=== PATIENT | female | born 1985 | race Caucasian/White ===

== ENCOUNTER → 2016-04-28 | Outpatient (CLI) | payer BC ==
[~2016-04-28] MED LIST: FERR325T; PRENTAB69 PO
[2016-04-28 11:54] LABS: URINE APPEARANCE CLEAR (CLEAR); URINE BILIRUBIN NEG (NEG); URINE COLOR YELLOW; URINE EPITHELIAL CELL AUTO 20-30 /lpf (0-5); URINE NITRITE NEG (NEG); URINE PH >= 9.0 (4.5-7.5); URINE SPECIFIC GRAVITY 1.014 (1.000-1.030); UROBILINOGEN NEG (NEG)
[2016-04-28 12:03] LABS: MANUAL MICROSCOPIC REQUIRED? NO; REVIEW REQ? NO
[2016-04-28 12:19] LABS: HEMATOCRIT 33.2 % (37-47)
[2016-04-28 12:46] LABS: GTGD 50 Grams
== END | disposition home or self-care (01) ==
LOC: C.LAB1850 10:28
PROVIDERS: ATTEND Obstetrics & Gynecology
DX: Z34.83 Encounter for supervision of other normal pregnancy, third trimester (principal)

== ENCOUNTER → 2016-06-30 | Outpatient (CLI) | payer BC | END | disposition home or self-care (01) | LOC: C.LABSPEC 16:25 | PROVIDERS: ATTEND Obstetrics & Gynecology | DX: Z34.83 Encounter for supervision of other normal pregnancy, third trimester (principal) ==

== ENCOUNTER 2016-07-05 11:06 | Inpatient (IN) | payer BC ==
[~2016-07-05] VITALS: Ht 149.9 cm; Wt 63.0 kg
[2016-07-05] MEDS ORDERED: LANOLIN OINT EXT PRN ×2 (11:30)
[2016-07-05] MEDS ORDERED: ACETAMINOPHEN 325 MG TAB PO PRN (11:30)
[2016-07-05] MEDS ORDERED: HYDROCORTISONE ACETATE 25 MG SUPP PR PRN (11:30)
[2016-07-05] MEDS ORDERED: OXYTOCIN INJ 10 UNITS/ML VIAL IM ONE (11:30)
[2016-07-05] MEDS ORDERED: DIPHTHERIA/TETANUS/PERTUSSIS 0.5 ML SYR/VIAL IM. ONE (11:30)
[2016-07-05] MEDS ORDERED: OXYCODONE/ACETAMINOPHEN 5-325 TAB PO PRN (11:30)
[2016-07-05] MEDS ORDERED: BENZOCAINE 20% AER SPR 82.5 GM CAN EXT PRN (11:30)
[2016-07-05] MEDS ORDERED: ACETAMINOPHEN/CODEINE 300/30MG TAB PO PRN ×2 (11:30)
[2016-07-05] MEDS ORDERED: SUPERCREAM 0.870 % 15GM JAR EXT PRN (11:30)
[2016-07-05 11:58] VITALS: BMI 28.1
--- NOTE | 2016-07-05 12:31 | DELIVERY SUMMARY ---
DATE OF OPERATION: 07/05/2016 PREOPERATIVE DIAGNOSIS: 1. Intrauterine at 37+ weeks. 2. Precipitous labor. POSTOPERATIVE DIAGNOSIS: Same. PROCEDURES: 1. Normal spontaneous vaginal delivery. 2. Second degree perineal laceration with repair. SURGEON: Dr. Montoya. ANESTHESIA: Local infiltration of lidocaine to the perineum. ESTIMATED BLOOD LOSS: 300 mL. PROCEDURE: The patient called noting that she had had a precipitous labor with her second baby laboring for 1.5 hours and she was katelyn and felt feeling pressure to push just like that. She was invited to come in. When she arrived she was uncomfortable nothing that she needed to push. She was evaluated and found to be complete complete and +2 station. She was pushing uncontrollably. She was coached in pushing and with the first push a bulging bag was noted at the introitus which was ruptured for clear fluid. Then she pushed to deliver a viable male in ROSA presentation. There was a double nuchal cord and the patient was unable to stop pushing so the baby was thankfully able to be delivered with that double nuchal cord. Once the baby was delivered the double nuchal cord was unwrapped. The baby did make an immediate cry. The nose and mouth were bulb suctioned. The cord was clamped and cut and the infant was placed on the maternal abdomen for drying and attention. Cord blood and segment were obtained. The placenta was delivered spontaneous and intact with 3-vessel cord. Hemostasis obtained with dilute Pitocin and IM pit. A small second degree perineal laceration was repaired under local infiltration of lidocaine to the perineum with 3-0 Vicryl in a normal standard fashion. Apgars were 8 and 10. Mother and baby doing well at the end of the delivery. I attest to the content of the Intraoperative Record and any orders documented therein. Any exceptio ns are noted below.
[2016-07-05] MEDS: IBUPROFEN 600 MG TAB PO PRN ×2 (13:51→19:58)
[2016-07-05 14:25] VITALS: Ht 149.9 cm; Wt 63.0 kg
[2016-07-05 15:30] VITALS: BP 127/81; PULSE 59; TEMP 36.8
[2016-07-05 19:45] VITALS: BP 131/77; PULSE 73; TEMP 36.9
[2016-07-05] MEDS: DOCUSATE SODIUM 100 MG CAP PO SCH (19:58)
[2016-07-06 00:25] VITALS: BP 118/67; PULSE 59; TEMP 36.9
[2016-07-06 04:40] VITALS: BP 118/74; PULSE 55; TEMP 36.8
[2016-07-06] MEDS: IBUPROFEN 600 MG TAB PO PRN ×2 (04:54→15:23)
--- NOTE | 2016-07-06 07:09 | Progress Note ---
Subjective Jul 06, 2016. Subjective conversation w/ patient, physical exam Ambulation: ambulating normally Passing Gas: Yes Diet Tolerance: Regular Diet Lochia: Small Feeding Type: Breast Feeding Review of Systems Constitutional: No chills, No fever, No sweats Respiratory: No cough, No shortness of breath Cardiac: No chest pain, No claudication Objective Vital Signs Date Time Temp Pulse Resp B/P Pulse Ox O2 Delivery O2 Flow Rate FiO2 07/06/16 04:40 36.8 55 18 118/74 Room Air 07/06/16 00:25 36.9 59 20 118/67 Room Air 07/06/16 00:25 Room Air 07/05/16 19:45 36.9 73 20 131/77 Room Air 07/05/16 15:30 36.8 59 16 127/81 Room Air 07/05/16 15:30 Room Air Physical Exam General Appearance: WELL-APPEARING, NO APPARENT DISTRESS Respiratory/Chest: lungs clear, no accessory muscle use Cardiovascular: regular rate, rhythm, no murmur Fundus: Firm, Non-Tender, Relation to Umbilicus (2 cm below) Extremities: non-tender, no calf tenderness Laboratory Results Last 24 Hours Test 07/06/16 04:44 Assessment and Plan Problem List Medical Problems: (1) uterine contractions, antepartum Status: Acute Post- Day#: 1 Continue Routine Care: s/p Day 1 - vitals reviewed and wnl - Hgb pending this morning - blood: A+, Rubella immune, GBS negative - encourage ambulation, encourage , monitor lochia - patient doing well clinically - CONTINUE ROUTINE POST CARE Resident Physician Supervision Note: I interviewed and examined the patient. Discussed with Dr. Gage and agree with findings and plan as documented in the note. Any exceptions or clarifications are listed here: Doing well. Routine care. Documented By: Ashley Montoya
[2016-07-06 07:38] LABS: HEMATOCRIT 32.9 % (37-47)
[2016-07-06] MEDS: PRENATAL VITAMIN TAB PO SCH (08:44)
[2016-07-06] MEDS: DOCUSATE SODIUM 100 MG CAP PO SCH ×2 (08:44→20:43)
[2016-07-06 08:45] VITALS: BP 119/75; PULSE 74; TEMP 36.5; O2SAT 97
[2016-07-06 15:15] VITALS: BP 130/76; PULSE 67; TEMP 36.7; O2SAT 98
[2016-07-07 00:35] VITALS: BP 117/71; PULSE 61; TEMP 36.6; O2SAT 98
[2016-07-07] MEDS: IBUPROFEN 600 MG TAB PO PRN (00:35)
--- NOTE | 2016-07-07 06:57 | Progress Note ---
Subjective Jul 07, 2016. Subjective conversation w/ patient, physical exam Ambulation: ambulating normally Voiding: no voiding problems Passing Gas: Yes Diet Tolerance: Regular Diet Lochia: Small Feeding Type: Breast Feeding Review of Systems Constitutional: No chills, No fever Respiratory: No cough, No shortness of breath Cardiac: No chest pain, No claudication Objective Vital Signs Date Time Temp Pulse Resp B/P Pulse Ox O2 Delivery O2 Flow Rate FiO2 07/07/16 00:35 36.6 61 16 117/71 98 Room Air 07/07/16 00:35 98 Room Air 07/06/16 15:15 36.7 67 16 130/76 98 Room Air 07/06/16 15:15 98 Room Air 07/06/16 08:45 97 Room Air 07/06/16 08:45 36.5 74 16 119/75 97 Room Air Physical Exam General Appearance: WELL-APPEARING, NO APPARENT DISTRESS Respiratory/Chest: lungs clear, no accessory muscle use Cardiovascular: regular rate, rhythm, no murmur Fundus: Firm, Non-Tender, Relation to Umbilicus (2 cm below) Extremities: non-tender, no calf tenderness Laboratory Results Last 24 Hours Test 07/06/16 07:24 Hemoglobin 11.2 g/dL Hematocrit 32.9 % Assessment and Plan Problem List Medical Problems: (1) uterine contractions, antepartum Status: Acute Post- Day#: 2 Continue Routine Care: Resident Physician Supervision Note: I interviewed and examined the patient. Discussed with Dr. Gage and agree with findings and plan as documented in the note. Any exceptions or clarifications are listed here: [None] Documented By: Beverly Collado s/p Day 2 - vitals reviewed and wnl - Hgb 11.2 yesterday - blood: A+, Rubella immune, GBS negative - encourage ambulation, encourage , monitor lochia - patient doing well clinically - patient counselled on discharge instructions - PATIENT TO BE DISCHARGED TODAY
--- NOTE | 2016-07-07 07:21 | Discharge Instructions ---
Discharge Instructions Date of Service Jul 07, 2016. Admission Reason for Admission: Check Labor Discharge Discharge Diagnosis / Problem: Spontaneous Vaginal Delivery Discharge Goals Goal(s): Routine recovery after delivery Medications Continue Dispensed Medications: supercream, dermaplast, tucks, lansinoh Activity Recommendations Activity Limitations: per Instructions/Follow-up section . Instructions / Follow-Up Instructions / Follow-Up ACTIVITY RECOMMENDATIONS: * Gradual return to full activity over the next 2-3 weeks. * No lifting - nothing heavier than baby over the next 2-3 weeks. * Do not engage in vigorous exercise, sexual activity or sports until cleared by your physician. * Do not drive or operate any motorized equipment until cleared by your physician. * You may shower/bathe daily. MEDICATIONS: For discomfort or pain, you may use Acetaminophen (Tylenol), Ibuprofen (Advil), or Naproxen (Aleve) following the package directions. For constipation you may use Colace following the package directions. BREAST CARE: If you are not breast feeding: * Wear a supportive bra 24 hours a day for one to two weeks. * Avoid stimulating your breasts and nipples as much as possible during the first few weeks after delivery. * When taking a shower, have the warm water hit your back, not breasts. * When your breasts feel full, apply ice packs. Usually three to four times a day helps ease the discomfort. * Take a mild pain medication (Tylenol / Motrin) when you are uncomfortable. If breast feeding: * Use breast milk to lubricate nipples. Lansinoh cream may be used for sore nipples. You do not need to remove cream prior to breast feeding. If using a different brand of cream, check the label for directions regarding removal of cream prior to nursing. * Wear a supportive bra. * If having problems with breasts or breast feeding, call a [facility] as[facility] consultant or your health care provider. EPISIOTOMY CARE: After delivery, if you have an episiotomy (stitches), the following steps will ease discomfort and aid healing. * For the first 24 hours after delivery, place ice packs next to your episiotomy to help reduce swelling. * After the first 24 hour-period, sitz baths, either portable or in the tub, are suggested. A shower with a shower arm sprayed over the episiotomy may be comforting. * Jadyn care should be done after each voiding and bowel movement. Squirt warm water from a plastic bottle over the perineum (region of the body between the anus and urinary opening) and pat dry. * Use Dermoplast to ease discomfort. Shake container. [place] directly over the episiotomy. Place a Tucks on a clean sanitary pad next to your episiotomy. SPECIAL CARE INSTRUCTIONS: When you are discharged from the hospital, it is important for you to follow the instructions listed below: * During the first week at home, you should be able to care for yourself and your baby. In addition, the usual light household activities are encouraged. * Limit your activities to the way you feel. Do not try to clean the house or move furniture. Be sensible. * If you actively engage in sports and have done so up until the time of your delivery, you may resume these activities as soon as you feel able. This may take up to one month or even longer. Use good judgment. * Continue to take your vitamins for at least six weeks after the of your baby. * Your diet need not be limited unless you were on a special diet before your delivery. Breast-feeding mothers need around 2500 calories per day and at least 64-80 ounces of fluid per day (8 to 10 glasses). * You should eat foods from the four major food groups. Crash diets or fad diets are to be avoided. Eating lean meats, fresh fruits and vegetables, low-fat dairy products, high fiber foods and a regular exercise program, will help you get back to your pre- weight without putting your health at risk. * Constipation is sometimes a problem after delivery. Take a mild laxative as needed. If breast feeding, Milk of Magnesia is acceptable to use. You may use a suppository or Fleets enema if no episiotomy. * A daily shower or tub bath is suggested. Be sure to thoroughly and gently dry the perineum. * A bloody vaginal discharge will usually continue until around four weeks post . A small amount of bleeding may continue for as long as six weeks. Vaginal discharge changes from the bright red bleeding after delivery to pink then brownish and finally yellowish-pink before becoming white and disappearing. * Bleeding may increase with activity. Your first period may come in 4-8 weeks. If you are breast feeding, your period may be delayed even longer. * [place] (sex) can begin whenever both you and your partner feel comfortable and do not have any form of genital infection. It is recommended that you wait at least six weeks for internal and external healing to occur. If you have questions, please talk to your health care practitioner. A condom should be used to prevent infection and . * Foreplay, gentle intercourse and lubrication is very important the first several times to prevent pain. A water-based lubricant such as K-Y jelly or Astroglide may be used. * If you have RH negative blood and your baby is RH positive, you will receive RHOGAM by injection prior to discharge. The nurse will give you a card to keep with you that has the date and place that you received RHOGAM after delivery. * During your care, you had a Rubella screen done to check for the presence of rubella antibodies in your blood. If your test was negative, you will receive a Rubella vaccine prior to discharge. This vaccine may cause a fever, soreness at the injection site and flu-like symptoms. If these symptoms persist, notify your health care practitioner. is not advised for one month after a Rubella vaccine. * Verbalizes understanding of car seat law as reviewed with patient nursing. * Car Seat hand-out given and reviewed with patient by nursing. * Shaken baby information reviewed with patient by nursing. Call you doctor if: * Heavy bleeding (saturating several pads an hour) or passing clots the size of your fist. * A fever >101 degrees F (38.3 degrees C) on two occasions four hours apart and /or chills. * Unusual pain in the pelvic or vaginal areas. * "Baby Blues" lasting longer than two weeks. If you have any questions or concerns, call your health care practitioner at . FOLLOW UP VISIT: * Please call the office at to schedule a 6 week examination. It is important you keep this appointment. It is important for you to make arrangements for either yearly or twice yearly check-ups thereafter. Current Hospital Diet Patient's current hospital diet: Regular OB Diet Discharge Diet Recommended Diet: Regular Diet Pending Studies Studies pending at discharge: no Medical Emergencies . Who to Call and When: Medical Emergencies: If at any time you feel your situation is an emergency, please call 911 immediately. . Non-Emergent Contact Non-Emergency issues call your: Primary Care Provider, Resident Services Coordinator . . "Provider Documentation" section prepared by Tomás Gage. VTE Core Measure Inpt VTE Proph given/why not?: Treatment not indicated
[2016-07-07 07:55] VITALS: BP 118/71; PULSE 60; TEMP 36.6
[2016-07-07] MEDS: DOCUSATE SODIUM 100 MG CAP PO SCH (08:10)
[2016-07-07] MEDS: PRENATAL VITAMIN TAB PO SCH (08:10)
[2016-07-07 10:00] VITALS: BP_DIAS 71; PULSE 60; TEMP 36.6
== END 2016-07-07 10:35 | disposition home or self-care (01) | DRG 775 ==
LOC: C.OPB 11:06 → C.LD 11:07 → C.OPB 11:25 → C.LD 11:27 → C.OBG 15:00
PROVIDERS: ADMIT Obstetrics & Gynecology; ATTEND Obstetrics & Gynecology
PROC: 0KQM0ZZ Repair Perineum Muscle, Open Approach (ICD-10-PCS; principal; 2016-07-05)
PROC: 10E0XZZ Delivery of Products of Conception, External Approach (ICD-10-PCS; principal; 2016-07-05)
DX: O62.3 Precipitate labor (principal); O70.1 Second degree perineal laceration during delivery; Z3A.37 37 weeks gestation of pregnancy; Z37.0 Single live birth